=== PATIENT | female | born 1980 | race Caucasian/White ===

== ENCOUNTER 2022-12-07 05:40 | Inpatient (IN) | payer OTHER ==
[2022-11-30 15:45] LABS: BASOPHILS % (AUTO) 0.4 % (0-1); EOSINOPHILS # (AUTO) 0.1 X10'3 (0-0.9); EOSINOPHILS % (AUTO) 0.6 % (0-6); LYMPHOCYTES # (AUTO) 2.5 X10'3 (1.1-4.8); LYMPHOCYTES % (AUTO) 27.6 % (21-51); MEAN CORPUSCULAR HEMOGLOBIN 30.6 PG (27.0-31.0); MEAN CORPUSCULAR HGB CONC 33.4 g/dL (33.0-36.5); MEAN CORPUSCULAR VOLUME 91.7 FL (78-98); MEAN PLATELET VOLUME 8.5 FL (7.4-10.4); MONOCYTES # (AUTO) 0.6 X10'3 (0-0.9); MONOCYTES % (AUTO) 6.7 % (2-12); NEUTROPHILS # (AUTO) 5.8 X10'3 (1.8-7.7); NEUTROPHILS % (AUTO) 64.7 % (42-75); PRE OP HEMATOCRIT 42.7 % (35.0-45.0); PRE OP HEMOGLOBIN 14.3 g/dL (12.0-16.0); PRE OP PLATELET COUNT 274 X10'3 (140-440); RED BLOOD COUNT 4.66 X10'6 (4.20-5.60); RED CELL DISTRIBUTION WIDTH 13.3 % (11.5-14.5)
[2022-11-30 15:45] LABS: CLARITY,URINE SLIGHTLY CLOUDY (Clear); COLOR,URINE YELLOW (Yellow); GLUCOSE, URINE NEGATIVE (Neg); KETONES,URINE TRACE mg/dl (Neg); LEUKOCYTE ESTERASE ,URINE TRACE (Neg); NITRITES, URINE NEGATIVE (Neg); OCCULT BLOOD,URINE NEGATIVE (Neg); PROTEIN,URINE NEGATIVE (Neg); UROBILINOGEN,URINE 0.2 E.U/dL (0.2-1.0)
[2022-11-30 15:54] LABS: UA COLLECTION TYPE CLN CATCH MIDSTREAM
[2022-11-30 15:57] LABS: SQUAMOUS EPITHELIAL CELL,UR FEW /LPF (FEW)
[2022-11-30 15:59] LABS: BACTERIA,URINE FEW /HPF (Neg)
[2022-11-30 16:00] LABS: RBC,URINE 0-2 /HPF (0-2); WBC,URINE 0-4 /HPF (0-4)
[2022-11-30 16:09] LABS: ALBUMIN 3.9 G/DL (3.4-5.0); ALKALINE PHOSPHATASE 56 IU/L (46-116); BLOOD UREA NITROGEN 14 MG/DL (7-18); BUN/CREATININE RATIO 24.1 (10.0-20.0); CALCIUM 9.3 MG/DL (8.5-10.1); CHLORIDE 103 MMOL/L (99-107); CREATININE 0.58 MG/DL (0.40-0.90); PRE OP ALT 26 U/L (30-65); PRE OP ANION GAP 9 (8-16); PRE OP AST 15 U/L (10-37); PRE OP BILIRUB, TOTAL 0.4 MG/DL (0.0-1.0); PRE OP GLUCOSE 87 MG/DL (70-104); PRE OP POTASSIUM 3.9 MMOL/L (3.4-5.1); PRE OP SODIUM 137 MMOL/L (135-145); TOTAL CARBON DIOXIDE 24.9 MMOL/L (24-32); TOTAL PROTEIN 7.8 G/DL (6.4-8.2); eGFR > 90 ML/MIN
[2022-12-07] VITALS (22 sets, daily range): BP systolic 83–106; BP diastolic 35–64
[~2022-12-07] VITALS: Ht 162.6 cm; Wt 91.7 kg
[~2022-12-07 05:40] MED LIST: BIOT1CAP3 PO; IBUP-1984 PO; acetaminophen 325mg tablet PO ONE; cefazolin 2gm/D5W 100mL 100 ML IV ONE; celeCOXIB 100mg capsule PO ONE; famotidine 20mg tablet PO ONE; gabapentin 300mg capsule PO ONE; metoclopramide 5 mg/ml inj IV ONE; oxyCODONE SR 10mg (sust. release) tab -2 tabs (20mg) PO ONE; tranexamic acid inj. 1,000 MG in normal saline IV soln 100ML IV ONE; vancomycin 1,500 MG in NS 300ml IV soln IV ONE
--- NOTE | 2022-12-07 06:30 | NUR ---
PT STATES SHE BATHED FOR 5 DAYS W/HEBICLENS SOAP PER JOINT REPLACEMENT PROTOCOL, DR BRO DOES NOT HAVE HIS PTS USE BACTROBAN OINTMENT. LEFT PEDAL/TIBIAL PULSES PALPABLE. Addendum: 12/07/22 at 1105 by Becky Gore RN Amended: Links added.
[2022-12-07] MEDS ORDERED: acetaminophen 325mg tablet PO PRN (06:40)
[2022-12-07] MEDS ORDERED: HYDROcodone/acetaminophen 10/325mg tab PO PRN (06:40)
[2022-12-07] MEDS ORDERED: bisacodyl 10mg suppository rectal RC PRN (06:40)
[2022-12-07] MEDS ORDERED: magnesium hydroxide 30ml (MOM) UD suspension PO PRN (06:40)
[2022-12-07] MEDS ORDERED: naloxone 0.4 mg/ml inj IV PRN (06:40)
[2022-12-07] MEDS ORDERED: diphenhydrAMINE 25mg capsule PO PRN ×2 (06:40)
[2022-12-07] MEDS ORDERED: tranexamic acid inj. 0 MG in normal saline 100ml IV soln 100 ML IV ONE (06:40)
[2022-12-07] MEDS ORDERED: HYDROmorphone inj. 0.5 MG/0.5 ML DISP.SYRIN IV PRN (06:40)
[2022-12-07] MEDS ORDERED: cloNIDine hcl/PF 100mcg/ml inj ONE (06:52)
[2022-12-07] MEDS ORDERED: epiNEPHrine 1 mg/ml inj ONE (06:52)
[2022-12-07] MEDS ORDERED: vancomycin 1,000mg inj ONE (06:52)
[2022-12-07] MEDS ORDERED: ROPIVAcaine 0.5% (5mg/ml) 30ml vial ONE (06:53)
[2022-12-07] MEDS: ringers solution, lacted 1,000 ML IV SCH ×2 (07:04→13:18)
[2022-12-07] MEDS ORDERED: fentaNYL/PF 50MCG/1 ML 2ML syringe ONE (07:12)
[2022-12-07] MEDS ORDERED: MIDAZolam 1 MG/ML 5ML VIAL ONE (07:13)
[2022-12-07] MEDS ORDERED: cefazolin 2gm/D5W 100mL 100 ML IV SCH (08:00)
[2022-12-07] MEDS ORDERED: propofol inj 20 ML IV ONE (08:30)
[2022-12-07] MEDS ORDERED: diphenhydrAMINE 50 mg/ml inj ONE (08:30)
[2022-12-07] MEDS ORDERED: LIDOcaine 1%/PF 5ML 10 MG/ML VIAL ONE (08:30)
[2022-12-07] MEDS: aspirin 325mg tablet PO SCH (08:30)
[2022-12-07] MEDS ORDERED: ePHEDrine 50MG/ML INJ. ONE (08:36)
[2022-12-07] MEDS ORDERED: ringers solution, lacted 1,000 ML IV SCH (08:40)
[2022-12-07] MEDS ORDERED: morphine 2 MG/ML inj. syringe IV PRN (08:40)
[2022-12-07] MEDS ORDERED: morphine 4 MG/ML inj SYRINge IV PRN (08:40)
[2022-12-07] MEDS ORDERED: proCHLORperazine 10 MG/2 ml inj IV PRN (08:40)
[2022-12-07] MEDS ORDERED: ondansetron/PF 4mg/2ml inj IV PRN (08:40)
[2022-12-07] MEDS ORDERED: meperidine/PF 25mg/ml syringe IV PRN ×3 (08:40)
[2022-12-07] MEDS ORDERED: meperidine/PF 25mg/ml syringe ONE (09:00)
--- NOTE | 2022-12-07 09:10 | NUR ---
Received from OR via ORTHO BED , accompanied by Anesthesiologist DR RUBY and report given by Anesthesiolgist. PT AROUSABLE. SPINAL LEVEL AT APPROX KNEE LEVEL. PT NOT YET ABLE TO WIGGLE TOES. DRSG TO LEFT HIP CDI, CM DRSG INTACT. STRONG PALPABLE PEDAL PULSE TO LEFT FOOT. KNEE IMMOBILIZER TO LEFT KNEE IN PLACE. IV TO LEFT F/A PATENT. IV BOLUS LR 200 ML INFUSING PER ANESTHESIA. PT DENIES PAIN AND STATES SHE IS COMFORTABLE.
--- NOTE | 2022-12-07 10:28 | NUR ---
PT RECOVERED AND READY FOR XFER TO ORTHO FLOOR. CALLED FLOOR AND JUST WAITING FOR NURSE ASSIGNMENT THEN WILL XFER PT TO ROOM 4021 A.
--- NOTE | 2022-12-07 10:40 | NUR ---
PTS MAYKEL BACK TO SEE PT. PT DOING WELL, TOLERATING WATER SIPS. DENIES PAIN AND NAUSEA. STILL AWAITING NURSE ASSIGNMENT FOR XFER TO ROOM.
--- NOTE | 2022-12-07 11:10 | NUR ---
PT TRANSFERRED TO 4023 A VIA SURGICAL BED. HSB MAYKEL AT BEDSIDE. PT STATES READINESS FOR X MIRIAM TO ROOM. CM DRSG REMAINS CDI. IV INFUSING LR W/ OUT COMPLICATIONS. PT DENIES PAIN AND NAUSEA. PT TO ROOM 4023 A ORIENTED TO ROOM AND CALL LIGHT. BED LOW, LOCKED, RAILS UP X 2. CALL LIGHT GIVEN TO PT AND HSB AT BEDSIDE. REPORT GIVEN TO JAY WHO ASSUMED CARE OF PT. PT SET UP ON POST OP VITALS PER PROTOCOL AND DENIES ANY OTHER IMMEDIATE NEEDS.
--- NOTE | 2022-12-07 11:20 | NUR ---
Patient in room ORTHO 4023. I have received report from Jeanette WRIGHT from recovery and had the opportunity to ask questions and assume patient care.
--- NOTE | 2022-12-07 11:30 | NUR ---
Patient arrived to the unit and Rosangela WRIGHT completed initial physical assessment and hung all IV antibiotic and administered all IV pain medications.
[2022-12-07] MEDS: HYDROmorphone 1 mg/ml syringe IV PRN ×2 (11:40→23:19)
[2022-12-07] MEDS ORDERED: tranexamic acid inj. 1,000 MG in normal saline 100ml IV soln 90 ML IV ONE (12:30)
[2022-12-07] MEDS: potassium cl 20mEq in 1/2 NS 1,000 ML IV SCH ×2 (12:30→22:21)
[2022-12-07] MEDS: HYDROcodone/acetaminophen 10/325mg tab PO PRN ×3 (13:25→22:23)
[2022-12-07] MEDS: cefazolin 2gm/D5W 100mL 100 ML IV SCH (16:18)
--- NOTE | 2022-12-07 16:34 | NUR ---
Patient BP is 88/49 HR 60, patient is alert, oriented and talking. I advised Dr. Longo and he said to just watch it.
--- NOTE | 2022-12-07 16:45 | NUR ---
Gave patient IS and advised that she use this often as this will help her lungs and BP. I also advised her to drink plenty of water.
--- NOTE | 2022-12-07 18:00 | NUR ---
I have reviewed & agree w/ interventions, assessments, and documentation by Arminda Potter LVN.
--- NOTE | 2022-12-07 18:36 | NUR ---
Problems reprioritized. Patient report given, questions answered & plan of care reviewed with Marisabel WRIGHT.
--- NOTE | 2022-12-07 18:37 | NUR ---
Patient in room ORTHO 4023. I have received report from KYLE Hilliard and had the opportunity to ask questions and assume patient care. Patient laying on hospital bed, reports pain 8. I advised I would check med rec for pain medication.
[2022-12-07] MEDS: ondansetron/PF 4mg/2ml inj IV PRN (18:59)
[2022-12-07] MEDS ORDERED: VANCOMYCIN 1,500MG inj. 1,500 MG in normal saline 500ml IV soln 300 ML IV ONE (20:00)
[2022-12-07] MEDS: sennosides 8.6mg tablet PO SCH (20:47)
[2022-12-07] MEDS: gabapentin 300mg capsule PO SCH (20:47)
--- NOTE | 2022-12-07 23:00 | NUR ---
Patient up to bedside commode, she is painful but able to ambulate w/1 person assist.
[2022-12-08] MEDS: cefazolin 2gm/D5W 100mL 100 ML IV SCH (00:15)
[2022-12-08 02:00] VITALS: BP 92/59
[2022-12-08] MEDS: HYDROcodone/acetaminophen 10/325mg tab PO PRN (02:28)
[2022-12-08] MEDS: ondansetron/PF 4mg/2ml inj IV PRN ×2 (03:49→11:04)
[2022-12-08] MEDS: HYDROmorphone 1 mg/ml syringe IV PRN ×2 (03:57→09:24)
[2022-12-08] MEDS: potassium cl 20mEq in 1/2 NS 1,000 ML IV SCH ×2 (04:30→09:11)
[2022-12-08 06:00] VITALS: BP 88/54
[2022-12-08 06:14] LABS: ANION GAP 3 (8-16); CHLORIDE 104 MMOL/L (99-107); POTASSIUM 4.1 MMOL/L (3.5-5.1); SODIUM 135 MMOL/L (135-145)
[2022-12-08 06:33] LABS: BASOPHILS % (AUTO) 0.3 % (0-1); EOSINOPHILS % (AUTO) 0.5 % (0-6); HEMATOCRIT 33.2 % (35.0-45.0); HEMOGLOBIN 11.1 g/dl (12.0-16.0); LYMPHOCYTES # (AUTO) 0.7 X10'3 (1.1-4.8); LYMPHOCYTES % (AUTO) 7.6 % (21-51); MEAN CORPUSCULAR HEMOGLOBIN 31.1 PG (27.0-31.0); MEAN CORPUSCULAR HGB CONC 33.6 g/dL (33.0-36.5); MEAN CORPUSCULAR VOLUME 92.5 FL (78-98); MEAN PLATELET VOLUME 8.8 FL (7.4-10.4); MONOCYTES # (AUTO) 0.4 X10'3 (0-0.9); MONOCYTES % (AUTO) 4.7 % (2-12); NEUTROPHILS # (AUTO) 8.4 X10'3 (1.8-7.7); NEUTROPHILS % (AUTO) 86.9 % (42-75); PLATELET COUNT 197 X10'3 (140-440); RED BLOOD COUNT 3.59 X10'6 (4.20-5.60); RED CELL DISTRIBUTION WIDTH 13.8 % (11.5-14.5); WHITE BLOOD COUNT 9.6 X10'3 (4.5-11.0)
--- NOTE | 2022-12-08 07:32 | NUR ---
I have received written report Marisabel WRIGHT report and assume patient care.
[2022-12-08] MEDS: ascorbic acid 500mg tablet PO SCH ×2 (08:39→20:44)
[2022-12-08] MEDS: aspirin 325mg tablet PO SCH (08:39)
[2022-12-08] MEDS: multivitamins, therapeutics tablet PO SCH (08:39)
[2022-12-08] MEDS: gabapentin 300mg capsule PO SCH ×3 (08:39→20:44)
[2022-12-08 10:00] VITALS: BP 130/70
--- NOTE | 2022-12-08 11:09 | NUR ---
Joint surgery consult: Pt s/p L hip surgery this admit per EMR. Pt seen by DONNA at bedside for written/verbal high protein diet ed w/ RD contact information provided. DONNA encouraged pt to contact dietitian's office if further nutrition questions/concerns. Addendum: 12/08/22 at [address] Amended: Links added.
[2022-12-08] MEDS ORDERED: proMETHazine 25mg tablet PO PRN (12:05)
[2022-12-08] MEDS ORDERED: normal saline 1000ml 1,000 ML IV ONE (12:10)
[2022-12-08] MEDS: ketorolac tromethamine 15mg/ml inj. IV SCH ×2 (16:21→21:06)
[2022-12-08 17:00] VITALS: BP 122/71
--- NOTE | 2022-12-08 18:00 | NUR ---
I have reviewed and agree with interventions, assessments, and documentation by Arminda Potter LVN.
[2022-12-08] MEDS: oxyCODONE IR 5mg (immed. release) tablet PO PRN ×2 (18:37→23:40)
--- NOTE | 2022-12-08 20:10 | NUR ---
Agree with NI Hilliard assessment except what I charted.
[2022-12-08] MEDS: celeCOXIB 100mg capsule PO SCH (20:44)
[2022-12-08] MEDS: sennosides 8.6mg tablet PO SCH (20:44)
[2022-12-08 22:00] VITALS: BP 120/63
--- NOTE | 2022-12-09 02:10 | NUR ---
Problems reprioritized. Patient report given, questions answered & plan of care reviewed with Mariposa WRIGHT.
[2022-12-09] MEDS: ketorolac tromethamine 15mg/ml inj. IV SCH ×2 (02:29→09:46)
[2022-12-09 06:00] VITALS: BP 95/63
[2022-12-09 06:10] LABS: BASOPHILS % (AUTO) 0.2 % (0-1); EOSINOPHILS # (AUTO) 0.2 X10'3 (0-0.9); EOSINOPHILS % (AUTO) 2.8 % (0-6); HEMATOCRIT 32.8 % (35.0-45.0); HEMOGLOBIN 11.1 g/dl (12.0-16.0); LYMPHOCYTES # (AUTO) 1.6 X10'3 (1.1-4.8); LYMPHOCYTES % (AUTO) 21.2 % (21-51); MEAN CORPUSCULAR HEMOGLOBIN 31.1 PG (27.0-31.0); MEAN CORPUSCULAR HGB CONC 33.9 g/dL (33.0-36.5); MEAN CORPUSCULAR VOLUME 91.8 FL (78-98); MEAN PLATELET VOLUME 8.3 FL (7.4-10.4); MONOCYTES # (AUTO) 0.6 X10'3 (0-0.9); NEUTROPHILS # (AUTO) 5.2 X10'3 (1.8-7.7); NEUTROPHILS % (AUTO) 67.8 % (42-75); PLATELET COUNT 208 X10'3 (140-440); RED BLOOD COUNT 3.58 X10'6 (4.20-5.60); RED CELL DISTRIBUTION WIDTH 13.7 % (11.5-14.5); WHITE BLOOD COUNT 7.6 X10'3 (4.5-11.0)
--- NOTE | 2022-12-09 06:24 | NUR ---
Patient in room ORTHO 4023. I have received report from Mariposa WRIGHT and had the opportunity to ask questions and assume patient care.
[2022-12-09] MEDS: gabapentin 300mg capsule PO SCH ×2 (07:03→11:52)
[2022-12-09] MEDS: aspirin 325mg tablet PO SCH (07:03)
[2022-12-09] MEDS: celeCOXIB 100mg capsule PO SCH (07:03)
[2022-12-09] MEDS: multivitamins, therapeutics tablet PO SCH (07:03)
[2022-12-09] MEDS: ascorbic acid 500mg tablet PO SCH (07:03)
[2022-12-09] MEDS: oxyCODONE IR 5mg (immed. release) tablet PO PRN ×2 (07:04→11:54)
[2022-12-09 10:37] VITALS: BP 120/57
--- NOTE | 2022-12-09 12:24 | NUR ---
Patient discharged home with family, personal belongings and extra CM dressing sent with. Education provided about bathing and wound care, questions answered. PIV D/C'd, tip in tact. Patient alert and appropriate at time of discharge.
[2022-12-09] MEDS ORDERED: OXYC-145 PO (12:26)
--- NOTE | 2022-12-09 12:47 | NUR ---
PROGRAM ADMIN documentation: I have reviewed and agree with all interventions, assessments performed and documented by Vivian Dejesus LVN.
== END 2022-12-09 12:25 | disposition home or self-care (01) | DRG 470 ==
LOC: PAS 05:40 → ORTHO 4S 12:20 → PAS 20:59 → ORTHO 4S 21:00
PROVIDERS: ADMIT Physician Assistant; ATTEND Orthopaedic Surgery
PROC: 0SRB06Z Replacement of Left Hip Joint with Oxidized Zirconium on Polyethylene Synthetic Substitute, Open Approach (ICD-10-PCS; principal; 2022-12-07 07:35)
DX: M16.12 Unilateral primary osteoarthritis, left hip (principal); Z79.82 Long term (current) use of aspirin; R11.0 Nausea
CPT/HCPCS: 36415; 72170; 80051; 80053; 81001; 82948; 85025; 86885; 86900; 86901; 87081; 87088; 93005; 97110; 97116; 97161; 97530; A7000; C1776; G0378; J0171; J0690; J0735; J0780; J1170; J1200; J1885; J2175; J2250; J2405; J2704; J2765; J2795; J3010; J3370; J3480; J3490; J7030; J7040; J7120; Q0169